=== PATIENT | male | born 1950 | race Caucasian/White ===

== ENCOUNTER → 2017-06-29 | Outpatient (CLI) | payer MEDICARE ==
--- NOTE | 2017-06-29 16:11 | RADIOLOGY REPORT PS360 ---
CT ABD PELVIS W/ CONTRAST CLINICAL INDICATION: Sepsis, dehydration, hypokalemia, elevated white blood cell count ELEVATED WHITE CELL COUNT ORDERING PHYSICIAN: Vick aRphael MD PATIENT AGE: 67 years COMPARISON: None TECHNIQUE: Axial images obtained with sagittal and coronal reformats. PROCEDURE: Oral Contrast: Redicat IV Contrast: 75 mL's of Isovue-[id number] . FINDINGS: A cluster of complex cystic lesions involve the left lobe of the liver. They have a somewhat irregular appearance. Initial images show some minimal enhancement of the capsule. The gadolinium these lesions measure up to 7 cm transverse and 4.4 cm cephalad to caudad. The largest single lesion measures 4 cm transverse. There is intra and extrahepatic biliary ductal dilatation. Gallstones are present. There are extensive collaterals in the perigastric region and in the portal area. 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 The right and left portal veins appear to fill via collaterals and a small/partially thrombosed/recanalized main portal vein. Coarse calcification involves pancreatic body and head consistent with chronic pancreatitis. There is a diverticulum projecting into the head of the pancreas. There is an 8 mm isodensity in the head of pancreas not. There is mild dilatation of the infrarenal abdominal aorta at 2.5 cm. The spleen and adrenal glands are unremarkable. There are bilateral renal cysts measuring up to 3 cm on the left. No hydronephrosis. No intestinal obstruction or free air. A moderate amount retained colonic feces in the rectosigmoid region. There is sigmoid diverticulosis but no evidence of diverticulitis. There is wedge compression changes of T12 and L1 greater at L1. Chronic. There is anterolisthesis of L4 on L5 of 6 mm. IMPRESSION: 1. Complex cystic mass in the left lobe of the liver as described above. Be secondary to neoplasm. Developing hepatic abscess is also a consideration. 2. Cholelithiasis. 3. Intra and extrahepatic biliary ductal dilatation of indeterminate etiology. 4. Chronic pancreatitis with a indeterminate 8 mm cystic lesion in the pancreatic head 5. 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
== END ==
LOC: RAD 14:08
DX: D72.829 Elevated white blood cell count, unspecified (principal)
CPT/HCPCS: Q9967